=== PATIENT | female | born 1985 | race Two or more races ===

== ENCOUNTER 2021-09-28 20:37 | Emergency (ER) | payer OTHER ==
[2021-09-28] MEDS ORDERED: Acetaminophen 500 MG Tab PO ONE (21:59)
[2021-09-28] MEDS ORDERED: Ketorolac 60 MG/2 ML SDV IM ONE (21:59)
[2021-09-28] MEDS ORDERED: Diazepam 5 MG Tab PO ONE (21:59)
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
== END 2021-09-28 23:53 | disposition home or self-care (01) ==
LOC: MW.ED 20:37
DX: M54.2 Cervicalgia (principal); M25.511 Pain in right shoulder; Z88.0 Allergy status to penicillin; V43.62XA Car passenger injured in collision with other type car in traffic accident, initial encounter
CPT/HCPCS: 71045; 72125; 73030; 81025; 96372; 99284; A9270; J1885

== ENCOUNTER 2023-03-04 19:03 | Inpatient (IN) | payer BC ==
[2023-03-04] MEDS ORDERED: Labetalol 100 MG/20 ML MDV IVPUSH ONE (20:15)
[2023-03-04 20:54] LABS: CARBON DIOXIDE,CO2 25.3 mmol/L (21.0-32.0); POTASSIUM,K 3.9 mmol/L (3.5-5.1)
[2023-03-04] MEDS ORDERED: hydrALAZINE 20 MG/ML SDV IVPUSH ONE ×3 (20:57→22:45)
[2023-03-04] MEDS ORDERED: hydrALAZINE 20 MG/ML SDV ONE (21:01)
[2023-03-04] MEDS ORDERED: Sodium Chloride 0.9% 20 ML SDV IV PRN (21:19)
[2023-03-04] MEDS ORDERED: Sodium Chloride 0.9% 2.5 ML Syringe FLUSH PRN (21:19)
[2023-03-04] MEDS ORDERED: hydrALAZINE 20 MG/ML SDV IVPUSH PRN (21:19)
[2023-03-04] MEDS ORDERED: Sodium Chloride 0.9% 10 ML Syringe FLUSH PRN (21:19)
[2023-03-04] MEDS ORDERED: Magnesium Sulfate/Water 4 GM in Premix Bag 1 BAG IV ONE (21:19)
[2023-03-04] MEDS ORDERED: Calcium Gluconate 10% 1 GM/10 ML SDV IV PRN (21:19)
[2023-03-04] MEDS ORDERED: Magnesium Sulfate/Water 20 GM/500 ML BAG IV SCH (21:30)
[2023-03-04] MEDS ORDERED: Oxytocin/0.9 % Sodium Chloride 30 UNIT/500 ML BAG IV SCH (21:30)
[2023-03-04] MEDS ORDERED: Misoprostol 25 MCG (1/4 of 100 MCG) Tab PO PRN (21:32)
[2023-03-04] MEDS ORDERED: Misoprostol 25 MCG (1/4 of 100 MCG) Tab PO ONE (21:33)
[2023-03-04] MEDS ORDERED: Sodium Chloride 0.9% 250 ML ONE (22:33)
[2023-03-04] MEDS ORDERED: Vancomycin 1.25 GM SDV ONE (22:33)
[2023-03-04] MEDS ORDERED: Sodium Chloride 0.9% 1,000 ML IV SCH (23:45)
[2023-03-05] MEDS ORDERED: Water For Irrigation,Sterile 1,000 ML Container IRR PRN (01:09)
[2023-03-05] MEDS ORDERED: Carboprost Tromethamine 250 MCG/1 ML Amp IM PRN (01:09)
[2023-03-05] MEDS ORDERED: Butorphanol 1 MG/ML SDV IVPUSH PRN (01:09)
[2023-03-05] MEDS ORDERED: Tranexamic Acid 1,000 MG in Sodium Chloride 0.9% 100 ML IV PRN (01:09)
[2023-03-05] MEDS ORDERED: Terbutaline 1 MG/ML SDV SUBCUT PRN (01:09)
[2023-03-05] MEDS ORDERED: Misoprostol 200 MCG Tab PO PRN (01:09)
[2023-03-05] MEDS ORDERED: Lidocaine 1% 50 ML MDV INJECT PRN (01:09)
[2023-03-05] MEDS ORDERED: Methylergonovine 0.2 MG/1 ML Amp IM PRN (01:09)
[2023-03-05] MEDS ORDERED: Oxytocin/0.9 % Sodium Chloride 30 UNIT/500 ML BAG IV SCH (01:15)
[2023-03-05] MEDS: Acetaminophen 325 MG Tab PO PRN ×2 (03:25→08:25)
[2023-03-05] MEDS ORDERED: Calcium Gluconate 10% 1 GM/10 ML SDV IV PRN (04:29)
[2023-03-05] MEDS: Lactated Ringers 1,000 ML IV SCH ×2 (08:10→12:30)
[2023-03-05] MEDS ORDERED: Vancomycin 2 GM in Sodium Chloride 0.9% 500 ML IV SCH (08:45)
[2023-03-05] MEDS ORDERED: Magnesium Sulfate/Water 20 GM/500 ML BAG ONE (09:56)
[2023-03-05] MEDS: Magnesium Sulfate/Water 20 GM/500 ML BAG IV SCH ×2 (10:03→19:41)
[2023-03-05] MEDS ORDERED: Dexmedetomidine 200 MCG/2 ML SDV ONE (11:53)
[2023-03-05] MEDS ORDERED: Ropivacaine/PF 400 MG/200 ML PCA ONE (11:54)
[2023-03-05] MEDS ORDERED: Phenylephrine HCl 0.5 MG/5 ML AMP ONE (11:54)
[2023-03-05] MEDS ORDERED: Witch Hazel Medicated Pads 40/Jar TOP PRN (13:53)
[2023-03-05] MEDS ORDERED: oxyCODONE 5 MG Tab PO PRN (13:53)
[2023-03-05] MEDS ORDERED: Benzocaine/Menthol 20%-0.5% Spray 78 GM Cannister TOP PRN (13:53)
[2023-03-05] MEDS ORDERED: Acetaminophen 500 MG Tab PO PRN (13:53)
[2023-03-05] MEDS ORDERED: Bisacodyl 10 MG Supp RECTAL PRN (13:53)
[2023-03-05] MEDS ORDERED: Ibuprofen 400 MG Tab PO PRN (13:53)
[2023-03-05] MEDS ORDERED: Lanolin 100% Cream 7 GM Tube TOP PRN (13:53)
[2023-03-05] MEDS: Acetaminophen 500 MG Tab PO PRN (16:11)
[2023-03-05] MEDS ORDERED: Labetalol 100 MG/20 ML MDV IVPUSH SCH (16:15)
[2023-03-05] MEDS: Labetalol 100 MG Tab PO SCH (21:22)
[2023-03-05] MEDS: Docusate Sodium 100 MG Cap PO PRN (21:22)
[2023-03-05] MEDS: Ibuprofen 800 MG Tab PO PRN (23:20)
[2023-03-06] MEDS: Acetaminophen 500 MG Tab PO PRN ×2 (01:02→12:06)
[2023-03-06] MEDS: Magnesium Sulfate/Water 20 GM/500 ML BAG IV SCH (05:49)
[2023-03-06] MEDS: Labetalol 100 MG Tab PO SCH ×3 (06:03→21:42)
[2023-03-06] MEDS: Ibuprofen 800 MG Tab PO PRN (08:28)
[2023-03-06] MEDS: Docusate Sodium 100 MG Cap PO PRN (21:42)
[2023-03-07] MEDS: Ibuprofen 800 MG Tab PO PRN (04:50)
[2023-03-07] MEDS: Labetalol 100 MG Tab PO SCH (06:06)
[2023-03-07] MEDS: Acetaminophen 500 MG Tab PO PRN (08:47)
[2023-03-07] MEDS ORDERED: Labetalol 100 MG Tab PO SCH (14:00)
== END 2023-03-07 15:00 | disposition home or self-care (01) | DRG 560 ==
LOC: MW.OBCHECK 19:03 → MW.OB 19:03 → MW.OBCHECK 21:18 → MW.OB 21:19 → INTOOBSV 21:19 → OBSVTOIN 03-05 13:54 → MW.OB 03-05 17:53
PROVIDERS: ADMIT Obstetrics & Gynecology; ATTEND Obstetrics & Gynecology
PROC: 10E0XZZ Delivery of Products of Conception, External Approach (ICD-10-PCS; principal; 2023-03-05)
PROC: 10907ZC Drainage of Amniotic Fluid, Therapeutic from Products of Conception, Via Natural or Artificial Opening (ICD-10-PCS; 2023-03-05)
PROC: 0KQM0ZZ Repair Perineum Muscle, Open Approach (ICD-10-PCS; 2023-03-05)
PROC: 3E0P7VZ Introduction of Hormone into Female Reproductive, Via Natural or Artificial Opening (ICD-10-PCS; 2023-03-05)
PROC: 3E0R3BZ Introduction of Anesthetic Agent into Spinal Canal, Percutaneous Approach (ICD-10-PCS; 2023-03-05)
PROC: 00HU33Z Insertion of Infusion Device into Spinal Canal, Percutaneous Approach (ICD-10-PCS; 2023-03-05)
DX: O11.4 Pre-existing hypertension with pre-eclampsia, complicating childbirth (principal); Z3A.37 37 weeks gestation of pregnancy; Z37.0 Single live birth; O10.92 Unspecified pre-existing hypertension complicating childbirth; O99.824 Streptococcus B carrier state complicating childbirth; O70.1 Second degree perineal laceration during delivery
CPT/HCPCS: 36415; 51702; 59025; 59409; 80053; 80202; 81003; 82570; 82803; 83735; 84156; 84550; 85014; 85018; 85025; 86850; 86900; 86901; A9270-GY; J0360; J2590; J2795; J3370; J3475; J3490; J7030; J7040; J7050; J7120

== ENCOUNTER 2023-03-12 17:40 | Emergency (ER) | payer BC ==
[2023-03-12] MEDS ORDERED: Sodium Chloride 0.9% 2.5 ML Syringe FLUSH PRN (18:12)
[2023-03-12] MEDS ORDERED: Sodium Chloride 0.9% 10 ML Syringe FLUSH PRN (18:12)
[2023-03-12] MEDS ORDERED: Labetalol 100 MG/20 ML MDV IVPUSH STA (18:14)
[2023-03-12 18:45] LABS: CARBON DIOXIDE,CO2 24.4 mmol/L (21.0-32.0)
[2023-03-12] MEDS ORDERED: NIFEdipine 30 MG Tab.ER PO STA (19:26)
[2023-03-12] MEDS ORDERED: Acetaminophen 500 MG Tab PO STA (19:26)
== END 2023-03-12 21:01 | disposition home or self-care (01) ==
LOC: MW.ED 17:40
DX: O10.93 Unspecified pre-existing hypertension complicating the puerperium (principal)
CPT/HCPCS: 36415; 80053; 81001; 83615; 83735; 84550; 85025; 93005; 96374; 99283; A9270; J3490; 93010; 99284